=== PATIENT | female | born 2005 | race African-American/Black ===

== ENCOUNTER 2023-12-01 10:59 | Emergency (ER) | payer MEDICAID ==
[~2023-12-01] VITALS: Ht 149.9 cm; Wt 56.7 kg
[2023-12-01 11:05] VITALS: O2SAT 100
[2023-12-01 11:25] LABS: CLARITY URINE CLEAR (CLEAR); COLOR URINE YELLOW (YELLOW); GLUCOSE URINE NEGATIVE (NEGATIVE); KETONES URINE TRACE (NEGATIVE); LEUKOCYTE ESTERASE URINE NEGATIVE (NEGATIVE); NITRITE URINE NEGATIVE (NEGATIVE); OCCULT BLOOD URINE 3+ (NEGATIVE); PH URINE 6.5 (4.5-8.0); PROTEIN URINE TRACE (NEGATIVE); SPECIFIC GRAVITY URINE 1.024 (1.005-1.030)
[2023-12-01 11:35] LABS: MUCUS URINE 2+ /lpf (< = 2+); SQUAMOUS EPITHELIAL CELL URINE 2+ /lpf (RARE/1+)
[2023-12-01 11:36] LABS: BACTERIA URINE 2+; WBC URINE 0-2 /hpf (0-2)
[2023-12-01 11:44] LABS: BASOPHILS % 0.5 % (0.0-2.0); EOSINOPHILS % 1.4 % (0.0-5.0); HEMATOCRIT. 46.6 % (36.0-48.0); HEMOGLOBIN. 15.9 g/dL (12.0-16.0); LYMPHOCYTES % 33.1 % (20.0-50.0); MEAN CORPUSCULAR HEMOGLOBIN 31.8 pg (28.0-32.0); MEAN CORPUSCULAR HGB CONC 34.2 g/dL (31.0-37.0); MEAN CORPUSCULAR VOLUME 92.9 fL (81.0-99.0); MEAN PLATELET VOLUME 8.6 fl (7.4-10.4); MONOCYTES % 9.5 % (2.0-8.0); NEUTROPHILS % 55.5 % (40.0-76.0); PLATELET 237 x1000/uL (130-400); RED BLOOD CELL COUNT 5.01 mill/uL (4.2-5.4); RED CELL DISTRIBUTION WIDTH 14.2 % (11.6-14.6); WHITE BLOOD COUNT 5.5 x1000/uL (4.5-11.0)
[2023-12-01 12:02] LABS: CHLORIDE 107 mEq/L (98-107); SODIUM 138 mEq/L (136-145)
[2023-12-01 12:03] LABS: CALCIUM 9.8 mg/dL (8.7-10.4); CARBON DIOXIDE 24 mEq/L (21-32)
[2023-12-01 12:08] LABS: CREATININE 0.9 mg/dL (0.6-1.0); GLUCOSE 82 mg/dL (70-105); UREA NITROGEN BLOOD 9 mg/dL (9-23)
[2023-12-01 12:14] LABS: HCG SCREEN NEGATIVE
[2023-12-01] MEDS: IBUPROFEN 600MG TABLET PO ONE (12:14)
[2023-12-01] MEDS ORDERED: IBUP-2029 MT (12:54)
[2023-12-01 12:59] VITALS: BP 124/74; PULSE 80; RESP 16; TEMP 98.1
== END 2023-12-01 13:04 | disposition home or self-care (01) ==
LOC: ER 10:59
DX: N92.1 Excessive and frequent menstruation with irregular cycle (principal)
CPT/HCPCS: 36415; 76830; 76856; 80048; 81003; 81025; 84703; 85025; 99284